=== PATIENT | male | born 1980 | race Caucasian/White ===

== ENCOUNTER 2024-03-12 09:07 | Outpatient (CLI) | payer BC | END 2024-03-12 09:08 | disposition home or self-care (01) | LOC: CSHWCC 09:07 | PROVIDERS: ATTEND Nurse Practitioner Family | DX: L89.893 Pressure ulcer of other site, stage 3 (principal); G57.93 Unspecified mononeuropathy of bilateral lower limbs; D35.2 Benign neoplasm of pituitary gland | CPT/HCPCS: 11042 ==

== ENCOUNTER 2024-04-07 10:18 | Outpatient (CLI) | payer BC | END 2024-04-07 10:19 | disposition home or self-care (01) | LOC: CSHWCC 10:18 | PROVIDERS: ATTEND Nurse Practitioner Family | DX: L89.893 Pressure ulcer of other site, stage 3 (principal); D35.2 Benign neoplasm of pituitary gland; G57.93 Unspecified mononeuropathy of bilateral lower limbs | CPT/HCPCS: 97597 ==

== ENCOUNTER 2024-04-14 16:10 | Outpatient (CLI) | payer BC | END 2024-04-14 16:11 | disposition home or self-care (01) | LOC: CSHWCC 16:10 | PROVIDERS: ATTEND Nurse Practitioner Family | DX: L89.893 Pressure ulcer of other site, stage 3 (principal); D35.2 Benign neoplasm of pituitary gland; G57.93 Unspecified mononeuropathy of bilateral lower limbs | CPT/HCPCS: 11042 ==

== ENCOUNTER 2024-04-21 15:15 | Outpatient (CLI) | payer BC | END 2024-04-21 15:16 | disposition home or self-care (01) | LOC: CSHWCC 15:15 | PROVIDERS: ATTEND Nurse Practitioner Family | DX: L89.893 Pressure ulcer of other site, stage 3 (principal); D35.2 Benign neoplasm of pituitary gland; G57.93 Unspecified mononeuropathy of bilateral lower limbs | CPT/HCPCS: 29445 ==

== ENCOUNTER 2024-05-12 14:24 | Outpatient (CLI) | payer BC | END 2024-05-12 14:25 | disposition home or self-care (01) | LOC: CSHWCC 14:24 | PROVIDERS: ATTEND Nurse Practitioner Family | DX: L89.893 Pressure ulcer of other site, stage 3 (principal); D35.2 Benign neoplasm of pituitary gland; G57.93 Unspecified mononeuropathy of bilateral lower limbs | CPT/HCPCS: 11042; 99213; G0463 ==

== ENCOUNTER 2024-05-19 15:14 | Outpatient (CLI) | payer BC | END 2024-05-19 15:15 | disposition home or self-care (01) | LOC: CSHWCC 15:14 | PROVIDERS: ATTEND Nurse Practitioner Family | DX: L89.893 Pressure ulcer of other site, stage 3 (principal); D35.2 Benign neoplasm of pituitary gland; G57.93 Unspecified mononeuropathy of bilateral lower limbs | CPT/HCPCS: 11042 ==